=== PATIENT | female | born 1980 | race Caucasian/White ===

== ENCOUNTER → 2019-09-24 | Emergency (ER) | payer OTHER ==
[~2019-09-24] VITALS: Ht 154.9 cm; Wt 71.2 kg
[~2019-09-24] MED LIST: AVELOX ABC PAC400 MG; CATAFLAM50 MG PO; CLONAZEPAM0.5 MG; LEXAPRO5 MG; NASONEX17 GM NS; ZITHROMAX500 MG; ZYRTEC10 MG PO
== END | disposition home or self-care (01) ==
LOC: ER 21:45
DX: H01.005 Unspecified blepharitis left lower eyelid (principal)